=== PATIENT | female | born 1955 | race Caucasian/White ===

== ENCOUNTER 2017-10-30 08:53 | Emergency (ER) | payer OTHER ==
[~2017-10-30] VITALS: Ht 162.6 cm; Wt 61.7 kg
== END 2017-10-30 11:47 | disposition home or self-care (01) ==
LOC: ER 08:53
DX: B34.9 Viral infection, unspecified (principal)

== ENCOUNTER 2020-11-22 14:09 | Emergency (ER) | payer OTHER ==
[~2020-11-22] VITALS: Ht 162.6 cm; Wt 61.7 kg
== END 2020-11-22 21:33 | disposition home or self-care (01) ==
LOC: ER 14:09
DX: R03.0 Elevated blood-pressure reading, without diagnosis of hypertension (principal); R10.13 Epigastric pain; R51.9 Headache, unspecified

== ENCOUNTER 2020-11-29 11:05 | Outpatient (CLI) | payer OTHER | END 2020-11-29 11:15 | disposition home or self-care (01) | LOC: TOM 11:05 | PROVIDERS: ATTEND Otolaryngology Otology & Neurotology | DX: H93.A2 Pulsatile tinnitus, left ear (principal) ==

== ENCOUNTER → 2021-01-14 11:46 | Outpatient (CLI) | payer OTHER ==
[~2021-01-14 11:46] MED LIST: LOSARTAN POTASS25 MG; TOPROL XL25 M1
== END | disposition home or self-care (01) ==
LOC: LAB 11:46
PROVIDERS: ATTEND Radiology Diagnostic Radiology
DX: I65.22 Occlusion and stenosis of left carotid artery (principal)

== ENCOUNTER 2021-01-19 10:58 | Outpatient (CLI) | payer OTHER ==
[2021-01-21] MEDS ORDERED: TOPROL XL25 M1 (03:31)
[2021-01-21] MEDS ORDERED: LOSARTAN POTASS25 MG (03:32)
== END 2021-01-19 12:52 | disposition home or self-care (01) ==
LOC: MRI 10:58
PROVIDERS: ATTEND Internal Medicine
DX: I65.22 Occlusion and stenosis of left carotid artery (principal)
CPT/HCPCS: 70548

== ENCOUNTER → 2021-01-21 | Emergency (ER) | payer OTHER ==
[~2021-01-21] VITALS: Ht 162.6 cm; Wt 58.5 kg
== END | disposition home or self-care (01) ==
LOC: ER 03:15
DX: I10 Essential (primary) hypertension (principal)

== ENCOUNTER 2021-03-01 08:34 | Outpatient (CLI) | payer OTHER | END 2021-03-01 08:43 | disposition home or self-care (01) | LOC: NUCLEAR 08:34 | PROVIDERS: ATTEND Internal Medicine | DX: R07.89 Other chest pain (principal) ==

== ENCOUNTER → 2021-08-02 08:48 | Outpatient (CLI) | payer OTHER | END | disposition home or self-care (01) | LOC: LAB 08:48 | PROVIDERS: ATTEND Radiology Diagnostic Radiology | DX: Z00.8 Encounter for other general examination (principal) ==

== ENCOUNTER 2021-08-02 10:07 | Outpatient (CLI) | payer OTHER | END 2021-08-02 10:28 | disposition home or self-care (01) | LOC: MRI 10:07 | PROVIDERS: ATTEND Internal Medicine | DX: G93.89 Other specified disorders of brain (principal); G93.2 Benign intracranial hypertension | CPT/HCPCS: 70552 ==

== ENCOUNTER → 2021-08-09 09:45 | Outpatient (CLI) | payer OTHER | END | disposition home or self-care (01) | LOC: LAB 09:45 | PROVIDERS: ATTEND Internal Medicine | DX: I10 Essential (primary) hypertension (principal) ==